=== PATIENT | female | born 1935 | race Two or more races ===

== ENCOUNTER 2020-07-30 13:52 | Emergency (ER) | payer OTHER ==
[~2020-07-30] VITALS: Ht 152.4 cm; Wt 62.6 kg
[2020-07-30] MEDS ORDERED: PEPCID AC20 MG (14:19)
[2020-07-30] MEDS ORDERED: LOSARTAN POTASS50 MG (14:20)
[2020-07-30] MEDS ORDERED: LASIX40 MG (14:20)
== END 2020-07-30 22:45 | disposition home or self-care (01) ==
LOC: ER 13:52
DX: K63.89 Other specified diseases of intestine (principal); R10.32 Left lower quadrant pain; R42 Dizziness and giddiness; Z03.818 Encounter for observation for suspected exposure to other biological agents ruled out

== ENCOUNTER 2020-12-31 13:40 | Inpatient (IN) | payer OTHER ==
[~2020-12-31] VITALS: Ht 154.9 cm; Wt 68.0 kg
[~2020-12-31 13:40] MED LIST: LASIX40 MG; LOSARTAN POTASS50 MG; PEPCID AC20 MG
[2020-12-31] MEDS ORDERED: LEVOTHYROXINE25 MCG (14:12)
[2021-01-06] MEDS ORDERED: CALADRYL 1%-8%177 ML TOP (10:11)
[2021-01-06] MEDS ORDERED: FOLIC ACID1 MG PO (10:11)
[2021-01-06] MEDS ORDERED: B Complex CAPSULE PO (10:11)
[2021-01-06] MEDS ORDERED: INTEGRA PLUS C1 EACH PO (10:11)
[2021-01-06] MEDS ORDERED: FAMOTIDINE20 MG PO (10:11)
[2021-01-06] MEDS ORDERED: LUBRIDERM DAIL177 ML TOP (10:11)
[2021-01-06] MEDS ORDERED: PYRIDOXINE HCL100 MG PO (10:11)
[2021-01-06] MEDS ORDERED: Neurin-Sl Tablet Sl SL (10:11)
[2021-01-06] MEDS ORDERED: LEVOTHYROXINE100 MCG PO (10:11)
[2021-01-06] MEDS ORDERED: SPIRONOLACTONE25 MG PO (10:11)
[2021-01-06] MEDS ORDERED: PRE PROTEIN1 EACH PO (10:11)
== END 2021-01-06 16:09 | disposition home or self-care (01) | DRG 811 ==
LOC: ER 13:40 → SEC-K 21:20 → MEDJ 01-01 12:59
PROVIDERS: ADMIT Internal Medicine; ATTEND Internal Medicine
PROC: 4A033R1 Measurement of Arterial Saturation, Peripheral, Percutaneous Approach (ICD-10-PCS; 2021-01-01)
PROC: 30233N1 Transfusion of Nonautologous Red Blood Cells into Peripheral Vein, Percutaneous Approach (ICD-10-PCS; principal; 2021-01-03)
PROC: 4A12X4Z Monitoring of Cardiac Electrical Activity, External Approach (ICD-10-PCS; 2021-01-03)
PROC: C51DYZZ Planar Nuclear Medicine Imaging of Bilateral Lower Extremity Veins using Other Radionuclide (ICD-10-PCS; 2021-01-05)
DX: D64.9 Anemia, unspecified (principal); I50.33 Acute on chronic diastolic (congestive) heart failure; E87.1 Hypo-osmolality and hyponatremia; I13.0 Hypertensive heart and chronic kidney disease with heart failure and stage 1 through stage 4 chronic kidney disease, or unspecified chronic kidney disease; N18.4 Chronic kidney disease, stage 4 (severe); N17.8 Other acute kidney failure; D63.1 Anemia in chronic kidney disease; E86.0 Dehydration; K74.69 Other cirrhosis of liver; R10.9 Unspecified abdominal pain; Z20.822 Contact with and (suspected) exposure to COVID-19